=== PATIENT | female | born 1960 | race Caucasian/White ===

== ENCOUNTER 2021-10-30 17:07 | Emergency (ER) | payer MEDICARE, OTHER ==
[~2021-10-30] VITALS: Ht 167.7 cm; Wt 72.6 kg
[2021-10-30] MEDS ORDERED: NS IV 1000 ML 1,000 ML IV STA (18:28)
--- NOTE | 2021-10-30 18:28 | ED Cardiac General ---
History of Present Illness General Chief Complaint: Chest Pain Stated Complaint: SOB,MEDICATION ISSUES Nursing Triage Note: PT AMBULATORY TO ROOM. PT STATES SHE WAS STARTED ON CLINDAMYCIN LAST SATURDAY FOR A SKIN INFECTION. PT REPORTS SINCE STARTING THE ANTIBIOTIC, SHE HAS HAD ESOPHAGEAL BURNING, CHEST PAIN, AND "FEELS LIKE SHE CANT GET A FULL BREATH." PT STATES HER DRS OFFICE TOLD HER TO TRY TAKING ANTIBIOTIC WITH MILK, SHE STATES THIS DID NOT HELP AND HER SYMPTOMS HAVE BEEN CONSTANT AND GETTING WORSE SINCE SATURDAY Source: patient Exam Limitations: no limitations History of Present Illness Date Seen by Provider: Oct 30, 2021 Time Seen by Provider: 18:27 Initial Comments Patient is a 61-year-old female who presents ED with burning in her chest. Symptoms started on . She started taking clindamycin for a potential MRSA boil. Started having burning in her chest after taking the clindamycin. She taken up to 4 doses and once again tried on Saturday irritating her throat. It was recommended to stop. She attempted to drink milk with it but this was unsuccessful. She started losing her voice yesterday difficulty talking. She states she coughs when she tries to talk. Denies history of GERD, acid reflux, CHF, coronary artery disease, COPD or asthma. She only coughs when she talks. Denies any vomiting or diarrhea. No improvement after stopping the clindamycin. She denies of any diffuse rash, fever, chills. Has not been able to eat secondary to the pain. She states she may be dehydrated Allergies and Home Medications Allergies Coded Allergies: No Allergy Information Available (Unverified , 10/30/21) Patient Home Medication List Home Medication List Reviewed: Yes Review of Systems Review of Systems Constitutional: No chills, No diaphoresis, No malaise, No weakness EENTM: No Eye Pain Respiratory: Cough; Denies Shortness of Air, Denies SOA at Rest Cardiovascular: Chest Pain; Denies Edema, Denies Irregular Heart Rate Gastrointestinal: Denies Abdominal Pain, Denies Diarrhea, Denies Vomiting Genitourinary: Denies Burning, Denies Discharge Musculoskeletal: No back pain, No joint pain Skin: No change in hair/nails All Other Systems Reviewed Negative Unless Noted: Yes Physical Exam Vital Signs Vital Signs - First Documented 10/30/21 17:25 Temp 36.8 Pulse 87 Resp 20 B/P (MAP) 139/77 (97) Pulse Ox 96 Capillary Refill : Height, Weight, BMI Height: '" Weight: lbs. oz. kg; 25.00 BMI Method: General Appearance: No Apparent Distress, WD/WN HEENT: PERRL/EOMI, TMs Normal, Normal ENT Inspection, Pharynx Normal Neck: Full Range of Motion, Normal Inspection, Non Tender, Supple Respiratory: Chest Non Tender, Lungs Clear, Normal Breath Sounds, No Accessory Muscle Use, No Respiratory Distress Cardiovascular: Regular Rate, Rhythm, No Edema, No Gallop, No JVD Gastrointestinal: Normal Bowel Sounds, No Organomegaly, No Pulsatile Mass, Non Tender, Soft Extremity: Normal Capillary Refill, Normal Inspection, Normal Range of Motion Neurologic/Psychiatric: Alert, Oriented x3, No Motor/Sensory Deficits, Normal Mood/Affect, organic preparation technician II-XII Norm as Tested Skin: Normal Color, Warm/Dry Progress/Results/Core Measures Results/Orders Lab Results Laboratory Tests Test 10/30/21 17:40 Range/Units White Blood Count 8.1 4.3-11.0 10^3/uL Red Blood Count 4.29 3.80-5.11 10^6/uL Hemoglobin 12.7 11.5-16.0 g/dL Hematocrit 39 35-52 % Mean Corpuscular Volume 90 80-99 fL Mean Corpuscular Hemoglobin 30 25-34 pg Mean Corpuscular Hemoglobin Concent 33 32-36 g/dL Red Cell Distribution Width 12.4 10.0-14.5 % Platelet Count 276 130-400 10^3/uL Mean Platelet Volume 10.3 9.0-12.2 fL Immature Granulocyte % (Auto) 0 % Neutrophils (%) (Auto) 67 42-75 % Lymphocytes (%) (Auto) 19 12-44 % Monocytes (%) (Auto) 10 0-12 % Eosinophils (%) (Auto) 3 0-10 % Basophils (%) (Auto) 1 0-10 % Neutrophils # (Auto) 5.4 1.8-7.8 10^3/uL Lymphocytes # (Auto) 1.5 1.0-4.0 10^3/uL Monocytes # (Auto) 0.8 0.0-1.0 10^3/uL Eosinophils # (Auto) 0.3 0.0-0.3 10^3/uL Basophils # (Auto) 0.1 0.0-0.1 10^3/uL Immature Granulocyte # (Auto) 0.0 0.0-0.1 10^3/uL Sodium Level 140 135-145 MMOL/L Potassium Level 4.3 3.6-5.0 MMOL/L Chloride Level 101 98-107 MMOL/L Carbon Dioxide Level 24 21-32 MMOL/L Anion Gap 15 H 5-14 MMOL/L Blood Urea Nitrogen 14 7-18 MG/DL Creatinine 1.27 0.60-1.30 MG/DL Estimat Glomerular Filtration Rate 48 BUN/Creatinine Ratio 11 Glucose Level 93 70-105 MG/DL Calcium Level 10.1 8.5-10.1 MG/DL Corrected Calcium 9.8 8.5-10.1 MG/DL Total Bilirubin 0.3 0.1-1.0 MG/DL Aspartate Amino Transf (AST/SGOT) 14 5-34 U/L Alanine Aminotransferase (ALT/SGPT) 10 0-55 U/L Alkaline Phosphatase 79 40-136 U/L Troponin I < 0.028 <0.028 NG/ML Total Protein 8.0 6.4-8.2 GM/DL Albumin 4.4 3.2-4.5 GM/DL Lipase 15 8-78 U/L My Orders Orders - RENU GRAVES Cbc With Automated Diff (10/30/21 18:25) Comprehensive Metabolic Panel (10/30/21 18:25) Lipase (10/30/21 18:25) Troponin I Chele (10/30/21 18:25) Chest 1 View, Ap/Pa Only (10/30/21 18:25) Lidocaine 2% Viscous 15 Ml (Xylocaine Vi (10/30/21 18:30) Antacid Suspension (Mylanta Suspension (10/30/21 18:30) Ns Iv 1000 Ml (Sodium Chloride 0.9%) (10/30/21 18:28) Medications Given in ED Current Medications Medications Dose Ordered Sig/Bacilio Route Start Time Stop Time Status Last Admin Dose Admin Al Hydrox/Mg Hydrox/Simethicone 30 ml ONCE ONCE PO 10/30/21 18:30 10/30/21 18:31 DC 10/30/21 18:41 30 ML Lidocaine HCl 15 ml ONCE ONCE PO 10/30/21 18:30 10/30/21 18:31 DC 10/30/21 18:40 15 ML Vital Signs/I&O 10/30/21 17:25 Temp 36.8 Pulse 87 Resp 20 B/P (MAP) 139/77 (97) Pulse Ox 96 Blood Pressure Mean: 97 Departure Communication (PCP) Patient with burning in the chest. Started after taking clindamycin. Took 4 doses ofantibiotics and was drinking milk without much improvement. Starts in upper abdomen and moves up the chest. She states she cannot have an EKG secondary to her nerve stimulator in her back which states causes malfunction of the stimulator. Refuses EKG. EKG and cardiac work-up was ordered secondary to the location of pain. Denies history of coronary artery disease. Chest x-ray was unremarkable. Agree to lab work which was otherwise unremarkable. Patient was given a liter fluid secondary to not able to eat and she states she has a solitary kidney. Patient Was given a GI cocktail with complete resolution of her symptoms. Concerning she may have some form esophagitis which is a rare complication secondary to clindamycin. She is currently on doxycycline. Consider PPI, Tums or Maalox. If any worsening symptoms may need further evaluation with EGD. Patient agrees with plan of action. Return precautions were discussed with patient. Impression Primary Impression: Esophagitis Disposition: HOME, SELF-CARE Condition: Stable Departure-Patient Inst. Decision time for Depature: 19:58 Referrals: [facility]/ZIA [facility],LOCAL PHYSICIAN (PCP) Primary Care Physician Patient Instructions: Acid Reflux and GERD in Adults (DC), LOCAL PHYSICIAN LIST Add. Discharge Instructions: May consider Maalox to help with pain as well as time. Avoid spicy foods. Avoid eating late at night. May consider omeprazole or Protonix as a PPI to help with acid production. All discharge instructions reviewed with patient and/or family. Voiced understanding. RENU GRAVES Oct 30, 2021 18:28
[2021-10-30] MEDS ORDERED: ANTACID SUSP 30 ML UDC (MYLANTA) PO ONE (18:30)
[2021-10-30] MEDS ORDERED: LIDOCAINE 2% VISCOUS 15 ML UDC PO ONE (18:30)
[2021-10-30 18:57] LABS: BASOPHILS # (AUTO) 0.1 10^3/uL (0.0-0.1); BASOPHILS % (AUTO) 1 % (0-10); EOSINOPHILS # (AUTO) 0.3 10^3/uL (0.0-0.3); EOSINOPHILS % (AUTO) 3 % (0-10); HEMATOCRIT 39 % (35-52); HEMOGLOBIN 12.7 g/dL (11.5-16.0); LYMPHOCYTES # (AUTO) 1.5 10^3/uL (1.0-4.0); LYMPHOCYTES % (AUTO) 19 % (12-44); MEAN CORPUSCULAR HEMOGLOBIN 30 pg (25-34); MEAN CORPUSCULAR HGB CONC 33 g/dL (32-36); MEAN CORPUSCULAR VOLUME 90 fL (80-99); MEAN PLATELET VOLUME 10.3 fL (9.0-12.2); MONOCYTES # (AUTO) 0.8 10^3/uL (0.0-1.0); MONOCYTES % (AUTO) 10 % (0-12); NEUTROPHILS # (AUTO) 5.4 10^3/uL (1.8-7.8); NEUTROPHILS % (AUTO) 67 % (42-75); PLATELET COUNT 276 10^3/uL (130-400); WHITE BLOOD COUNT 8.1 10^3/uL (4.3-11.0)
[2021-10-30 19:00] LABS: ALBUMIN 4.4 GM/DL (3.2-4.5); CHLORIDE 101 MMOL/L (98-107); POTASSIUM 4.3 MMOL/L (3.6-5.0); SODIUM 140 MMOL/L (135-145)
[2021-10-30 19:01] LABS: CALCIUM 10.1 MG/DL (8.5-10.1)
[2021-10-30 19:02] LABS: GLUCOSE 93 MG/DL (70-105)
[2021-10-30 19:03] LABS: CARBON DIOXIDE 24 MMOL/L (21-32)
[2021-10-30 19:04] LABS: BILIRUBIN,TOTAL 0.3 MG/DL (0.1-1.0)
[2021-10-30 19:06] LABS: ALKALINE PHOSPHATASE 79 U/L (40-136); CREATININE SERUM 1.27 MG/DL (0.60-1.30); GFR ESTIMATED 48
[2021-10-30 19:07] LABS: BUN/CREATININE RATIO 11
[2021-10-30 19:09] LABS: ALANINE AMINOTRANSFERASE 10 U/L (0-55); LIPASE 15 U/L (8-78)
--- NOTE | 2021-10-30 19:42 | Diagnostic Imaging Report ---
EXAMINATION: Chest 1 view HISTORY: Cough COMPARISON: None available. FINDINGS: The lungs are clear without edema or pneumonia. No pleural effusion or pneumothorax. Heart size is normal. IMPRESSION: 1. Clear lungs. Dictated by: Dictated on workstation # [id number]
[2021-10-30 20:11] VITALS: BP 124/72
== END 2021-10-30 20:13 | disposition home or self-care (01) ==
LOC: ER 17:13
DX: K20.90 Esophagitis, unspecified without bleeding (principal); Q60.0 Renal agenesis, unilateral; Z79.2 Long term (current) use of antibiotics
CPT/HCPCS: 36415; 71045; 80053; 83690; 84484; 85025